=== PATIENT | male | born 1985 | race Caucasian/White ===

== ENCOUNTER → 2020-10-25 10:12 | Outpatient (CLI) | payer OTHER, SELFPAY ==
--- NOTE | ~2020-10-25 | XR_ITS ---
EXAMINATION: XR shoulder LT min 2V, XR clavicle LT DATE: 10/25/2020 10:40 INDICATION: Left shoulder pain TECHNIQUE: 1. AP internally and externally rotated, AP oblique externally rotated and axillary views of the left shoulder were obtained. 2. AP and 10 degrees cephalad angled AP view of the left clavicle was obtained. COMPARISON: None FINDINGS: Normal alignment. No acute fracture. Glenohumeral joint is normal. Mild hypertrophic change along th e cephalad head of the left clavicle which could be related to either mild acromioclavicular osteoart hritis, old healed fracture or hypertrophic change related to old capsular avulsion injury. Soft tiss ues are unremarkable. Visualized portions of the lungs are clear. IMPRESSION: Mild hypertrophic change at the lateral head of the left clavicle which could be related to old traum a or mild acromioclavicular osteoarthritis. Reviewed, dictated and finalized at location A. IMPRESSION: Mild hypertrophic change at the lateral head of the left clavicle which could b e related to old trauma or mild acromioclavicular osteoarthritis.
== END ==
PROVIDERS: PCP Pediatrics; Visit Provider Nurse Practitioner Family
DX: M25.512 Pain in left shoulder (principal)
CPT/HCPCS: 73000; 73030

== ENCOUNTER → 2022-12-10 14:10 | Outpatient (CLI) | payer OTHER, SELFPAY ==
--- NOTE | ~2022-12-10 | CT_ITS ---
. EXAMINATION: CT abdomen pelvis wo/w con DATE: 12/10/2022 14:50 INDICATION: Hematuria. TECHNIQUE: Computed tomography (CT) of the abdomen and pelvis was performed without and with intraven ous contrast using a total of 130 mL Omnipaque-350 intravenous contrast with a double-bolus technique for simultaneous opacification of the renal parenchyma and renal collecting system. Automated exposu re control and iterative reconstruction technique were employed. The dose-length product was 2340.91 mGy-cm. COMPARISON: None FINDINGS: The visualized portions of the lung bases demonstrate mild atelectasis. No pleural effusion. The hear t size is normal. No pericardial effusion. There is diffuse hepatic steatosis. The gallbladder, splee n, pancreas, adrenal glands, and kidneys are normal. There is no urolithiasis. The ureters are well o pacified and are normal. The bladder is normal. There are bilateral inguinal hernias containing fat. There are no dilated loops of bowel. The appendix is normal. There are no pathologically enlarged lym ph nodes. There is no free intraperitoneal fluid. There is mild thoracic and lumbar spondylosis. IMPRESSION: 1. No etiology for hematuria. 2. Bilateral inguinal hernias containing fat. 3. Diffuse hepatic steatosis. Reviewed, dictated and finalized at location A.
[2022-12-10 14:31] LABS: Estimated Glomerular Filt Rate > 60
== END ==
DX: N50.1 Vascular disorders of male genital organs (principal); R31.0 Gross hematuria; K76.0 Fatty (change of) liver, not elsewhere classified; K40.20 Bilateral inguinal hernia, without obstruction or gangrene, not specified as recurrent
CPT/HCPCS: 74178; Q9967

== ENCOUNTER 2024-02-10 12:53 | Emergency (ER) | payer OTHER, SELFPAY ==
--- NOTE | ~2024-02-10 | XR_ITS ---
Lumbosacral Spine: AP and lateral views Clinical History: Pain Findings: The normal lordotic curve is maintained. The vertebral bodies and posterior elements are i ntact. The intervertebral disc spaces are preserved. The sacroiliac joints are normally outlined. Impression: No significant abnormality. Reviewed, dictated and finalized at [facility]. Impression: No significant abnormality.
--- NOTE | 2024-02-10 12:57 | ED.BACK ---
HPI - Back Pain/Injury General Chief Complaint: Back Pain/Injury Stated Complaint: back pain Time Seen by Provider: 02/10/24 12:56 Source: patient Mode of arrival: ambulatory Limitations: no limitations History of Present Illness HPI Narrative: Andi is a 38-year-old male patient presenting to the clinic today with complaints of left-sided back pain. 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 States the pain was radiating into the tailbone but now it is more radiating cross the left side of his back. Pain is sharp and achy. Rates the pain a 3/10 currently while standing but the pain exacerbates when he sits or moves. Denies any saddle anesthesia or loss of bowel or bladder. Denies any radiation of pain down into his legs. Related Data Home Medications Medication Instructions Recorded Confirmed amlodipine 5 mg tablet 5 mg PO DAILY 02/10/24 02/10/24 Allergies Allergy/AdvReac Type Severity Reaction Status Date / Time No Known Allergies Allergy Mild Verified 02/10/24 13:06 Review of Systems Review of Systems: Pertinent positives per HPI. Patient denies any fever, chills, rash, headache, visual changes, dizziness, cough, runny nose, sore throat, shortness of breath, chest pain, palpitations, nausea, vomiting, diarrhea, constipation, abdominal pain, or any urinary issues. PMFSH Family History Family History Mother Family history of malignant neoplasm of breast in first degree relative Hypertension Grandparent Hypertension Father Patient's father is in good health Social History Social History Smoking status: Never smoker Second hand tobacco smoke exposure: No Alcohol intake: current Comments At the time of my signature, I reviewed and agree with the nursing past medical, surgical, social, and family history. There is no relevant family history pertinent to the patient complaint. Exam Narrative: General: Well-developed, well nourished, in no apparent distress Head: Normocephalic, atraumatic. Cardio: Regular rate and rhythm, s1 and s2 normal, no murmur appreciated. Resp: Clear to auscultation bilaterally, no rhonchi, rales, wheezing or rubs. Musculoskeletal: No deformity,tender to palpation over the left lower back, pain exacerbated with sitting and lifting the left leg, grossly normal range of motion, bilateral lower muscle strength strong and equal, patellar reflexes 2+ bilaterally, negative foot drop, peripheral pulse strong, no edema, no cyanosis, normal gait and station Course Course Emergency Course: Portions of this record may have been created with voice recognition software. Level of Care: Express Care Visit Vital Signs Vital signs: Vital signs reviewed MDM - Back Pain/Injury MDM Narrative Medical decision making narrative: At the time of visit patient is resting comfortably on the exam table. Patient appears to be nontoxic. Diagnostics: X-ray of the lumbar spine was negative for any sign of fracture or malalignment. Medications given: Toradol 60 mg IM Plan: I suspect the patient has a left-sided lumbar/muscular strain. Supportive measures were discussed with the patient and they voiced understanding discharge instructions and agrees to treatment plan. Return precautions reviewed Differential Diagnosis Differential diagnosis: Likely lumbar radiculopathy, sciatica, strain of lumbar region and discitis Imaging Data Radiologist's impression: ITS Impressions Lumbar Spine X-Ray 02/10/24 13:42 Impression: No significant abnormality. Discharge Plan Discharge Clinical Impression: Low back pain Qualifiers: [facility]
[2024-02-10 13:07] VITALS: BP 128/85; PULSE 68; RESP 18; TEMP 36.3; O2SAT 99
[2024-02-10] MEDS: KETOROLAC (*BKC) 60 MG/2 ML VIAL IM (13:24)
== END 2024-02-10 13:52 | disposition home or self-care (01) ==
PROVIDERS: Emergency Provider Nurse Practitioner Family; PCP Pediatrics
DX: S39.012A Strain of muscle, fascia and tendon of lower back, initial encounter (principal); X50.0XXA Overexertion from strenuous movement or load, initial encounter; Y99.0 Civilian activity done for income or pay; I10 Essential (primary) hypertension; Z86.16 Personal history of COVID-19
CPT/HCPCS: 72100; 96372; 99213; G0463; J1885